=== PATIENT | male | born 1950 | race Caucasian/White ===

== ENCOUNTER 2020-05-27 10:46 | Emergency (ER) | payer MEDICARE, BC ==
[2020-05-27] MEDS ORDERED: Sodium Chloride 0.9% 10 ML Syringe FLUSH PRN (11:44)
[2020-05-27] MEDS ORDERED: Ibuprofen 400 MG Tab PO ONE (12:07)
[2020-05-27] MEDS ORDERED: Lisinopril 10 MG Tab PO ONE (12:07)
[2020-05-27] MEDS ORDERED: Metoprolol Succinate 50 MG Tab.ER PO ONE (12:08)
[2020-05-27] MEDS ORDERED: Aspirin 325 MG Tab.EC PO ONE (12:08)
--- NOTE | 2020-05-27 12:14 | EDM.PDOC ---
ED HPI GENERAL MEDICAL PROBLEM - General Chief Complaint: Respiratory Problem Stated Complaint: COVID POSITIVE, WORSENING SYMPTOMS Time Seen by Provider: 05/27/20 11:55 Source of Information: Reports: Patient, Old Records History Limitations: Reports: No Limitations - History of Present Illness INITIAL COMMENTS - FREE TEXT/NARRATIVE: 70 yo male with Covid for the past approx a week presents with continued fevers and body aches. Has been drinking a lot of water, but thinks he's dehydrated. He was sent from the [facility] to infusion therapy yesterday for IV fluids. No diarrhea or vomiting. No SOB. Did take acetaminophen before coming to the ER. Skipped all his morning meds today so far except his metformin. Ate breakfast at 6 am, nothing since. Has not fallen, denies dizziness with standing. Lives with his . Onset: Gradual Onset Date: 05/19/20 Duration: Week(s): (1+), Getting Worse Location: Reports: Generalized Quality: Reports: Ache Severity: Moderate Improves with: Reports: Medication Worsens with: Reports: Other (lack of medication) Context: Reports: Other (See HPI) Associated Symptoms: Reports: Cough (rare), Fever/Chills, Malaise. Denies: Nausea/Vomiting, Rash, Seizure, Shortness of Breath, Syncope Treatments INVOICE CLASSIFICATION CLERK: Reports: Acetaminophen - Related Data Allergies Allergy/AdvReac Type Severity Reaction Status Date / Time cephalexin Allergy Rash Verified 05/27/20 11:17 Sulfa (Sulfonamide Allergy Other Verified 05/27/20 11:17 Antibiotics) Home Meds: Home Meds Albuterol Sulfate [Proair Hfa] 1 - 2 puff IH Q4HR PRN 05/26/20 [History] Aspirin 325 mg PO DAILY 05/26/20 [History] Fenofibrate 160 mg PO DAILY 05/26/20 [History] Fish Oil/[place]-3 Fatty Acids [Fish Oil 1,000 MG] 1 each PO DAILY 05/26/20 [History] Fluticasone Propionate [Flovent HFA] 2 puff INH BID 05/26/20 [History] Loratadine [Claritin] 10 mg PO DAILY 05/26/20 [History] Metoprolol Succinate [Toprol Xl] 50 mg PO DAILY 05/26/20 [History] Nitroglycerin [Nitrostat] 0.4 mg SL ASDIRECTED 05/26/20 [History] Simvastatin [Zocor] 80 mg PO BEDTIME 05/26/20 [History] lisinopriL [Lisinopril] 10 mg PO DAILY 05/26/20 [History] metFORMIN [Glucophage] 500 mg PO BIDMEALS 05/26/20 [History] predniSONE [Prednisone] 20 mg PO DAILY 05/26/20 [History] Past Medical History Cardiovascular History: Reports: Angina, High Cholesterol, Hypertension, Stents Respiratory History: Reports: Sleep Apnea Other Respiratory History: uses cpap Musculoskeletal History: Reports: Fracture Endocrine/Metabolic History: Reports: Diabetes, Type II Social & Family History - Tobacco Use Tobacco Use Status *Q: Never Tobacco User - Recreational Drug Use Recreational Drug Use: No ED ROS GENERAL - Review of Systems Review Of Systems: See Below Constitutional: Reports: Fever, Malaise, Fatigue HEENT: Reports: No Symptoms Respiratory: Reports: Cough (mild). Denies: Shortness of Breath, Wheezing, Pleuritic Chest Pain, Sputum, Hemoptysis Cardiovascular: Reports: No Symptoms Endocrine: Reports: No Symptoms GI/Abdominal: Reports: No Symptoms : Reports: No Symptoms Musculoskeletal: Reports: Other (diffuse body aches) Skin: Reports: No Symptoms Neurological: Reports: No Symptoms ED EXAM, GENERAL - Physical Exam Exam: See Below Exam Limited By: No Limitations General Appearance: Alert, WD/WN, No Apparent Distress, Obese Eye Exam: Bilateral Eye: Normal Inspection Ears: Normal External Exam, Normal Canal, Hearing Grossly Normal Ear Exam: Bilateral Ear: Auricle Normal, Canal Normal Nose: Normal Inspection, No Blood Throat/Mouth: Normal Inspection, Normal Lips, Normal Oropharynx, Normal Voice, No Airway Compromise Head: Atraumatic, Normocephalic Neck: Normal Inspection Respiratory/Chest: No Respiratory Distress, Lungs Clear, Normal Breath Sounds, No Accessory Muscle Use Cardiovascular: Regular Rate, Rhythm, No Edema GI/Abdominal: Normal Bowel Sounds, Soft, Non-Tender, No Distention Back Exam: Normal Inspection. No: CVA Tenderness (R), CVA Tenderness (L) Extremities: Normal Inspection, Normal Range of Motion, Non-Tender, No Pedal Edema Neurological: Alert, Oriented, CN II-XII Intact, Normal Cognition, No Motor/Sensory Deficits Psychiatric: Normal Affect, Normal Mood Skin Exam: Warm, Dry, Intact, Normal Color, No Rash Course - Vital Signs Last Recorded V/S: Last Vital Signs Temp Pulse 79 05/27/20 13:31 Resp 18 05/27/20 11:21 BP 140/76 05/27/20 13:31 Pulse Ox 96 05/27/20 11:21 - Orders/Labs/Meds Orders: Active Orders 24 hr Category Date Time Status Sodium Chloride 0.9% [Saline Flush] Med 05/27/20 11:44 Active 10 ml FLUSH ASDIRECTED PRN Saline Lock Insert [OM.PC] Routine Oth 05/27/20 11:44 Ordered Medication Orders Sodium Chloride (Saline Flush) 10 ml FLUSH ASDIRECTED PRN PRN Reason: Keep Vein Open Labs: Laboratory Tests 05/27/20 05/27/20 05/27/20 Range/Units 11:57 12:05 13:32 WBC 7.0 (4.5-11.0) K/uL RBC 3.91 L (4.30-5.90) M/uL Hgb 12.8 (12.0-15.0) g/dL Hct 38.9 L (40.0-54.0) % MCV 100 H (80-98) fL MCH 33 H (27-31) pg MCHC 33 (32-36) % Plt Count 233 (150-400) K/uL Sodium 135 L (140-148) mmol/L Potassium 4.4 (3.6-5.2) mmol/L Chloride 102 (100-108) mmol/L Carbon Dioxide 21 (21-32) mmol/L Anion Gap 16.4 H (5.0-14.0) mmol/L BUN 20 H (7-18) mg/dL Creatinine 1.0 (0.8-1.3) mg/dL Est Cr Clr Drug Dosing 67.45 mL/min Estimated GFR (MDRD) > 60 (>60) Glucose 221 H (74-106) mg/dL Calcium 8.8 (8.5-10.1) mg/dL Urine Color Yellow (YELLOW) Urine Appearance Clear (CLEAR) Urine pH 5.5 (5.0-8.0) Ur Specific [place] >= 1.030 (1.008-1.030) Urine Protein 30 H (NEGATIVE) mg/dL Urine Glucose (UA) 500 H (NEGATIVE) mg/dL Urine Ketones Negative (NEGATIVE) mg/dL Urine Occult Blood Negative (NEGATIVE) Urine Nitrite Negative (NEGATIVE) Urine Bilirubin Negative (NEGATIVE) Urine Urobilinogen 0.2 (0.2-1.0) EU/dL Ur Leukocyte Esterase Negative (NEGATIVE) Urine RBC 0-5 (0-5) Urine WBC 0-5 (0-5) Ur Epithelial Cells Rare Amorphous Sediment Rare Urine Bacteria Rare Urine Mucus Rare Urine Other Meds: Medications Generic Name Dose Route Start Last Admin Trade Name Freq PRN Reason Stop Dose Admin Sodium Chloride 10 ml 05/27/20 11:44 Saline Flush FLUSH ASDIRECTED PRN Keep Vein Open Discontinued Medications Generic Name Dose Route Start Last Admin Trade Name Freq PRN Reason Stop Dose Admin Aspirin 325 mg 05/27/20 12:08 05/27/20 13:31 Ecotrin PO 05/27/20 12:09 325 mg ONETIME ONE Administration Ibuprofen 400 mg 05/27/20 12:07 05/27/20 13:31 Motrin PO 05/27/20 12:08 400 mg ONETIME ONE Administration Lisinopril 10 mg 05/27/20 12:07 05/27/20 13:31 Prinivil PO 05/27/20 12:08 10 mg ONETIME ONE Administration Metoprolol Succinate 50 mg 05/27/20 12:08 05/27/20 13:31 Toprol Xl PO 05/27/20 12:09 50 mg ONETIME ONE Administration - Re-Assessments/Exams Free Text/Narrative Re-Assessment/Exam: 05/27/20 14:01 Ate lunch here and had a glass of water. Departure - Departure Time of Disposition: 14:05 Disposition: Home, Self-Care 01 Condition: Fair Clinical Impression: COVID-19, Body aches - Discharge Information *PRESCRIPTION DRUG MONITORING PROGRAM REVIEWED*: No *COPY OF PRESCRIPTION DRUG MONITORING REPORT IN PATIENT JUAN: No Referrals: PCP,None [Primary Care Provider] - Forms: ED Department Discharge Additional Instructions: Add ibuprofen 400 mg every 6 hrs if needed for body aches, otherwise continue your current treatments/meds. Drink one or two of your no sugar sport drinks daily for the electrolytes, otherwise drink enough water so your urine is light yellow in color. Stay in touch with your provider on your condition. Return here or bad shortness of breath at rest. Sepsis Event Note (ED) - Evaluation Sepsis Screening Result: No Definite Risk - Focused Exam Vital Signs: Vital Signs Pulse Pulse Resp BP BP Pulse Ox 05/27/20 13:31 79 140/76 05/27/20 11:21 80 18 140/76 96 - My Orders Last 24 Hours: My Active Orders 05/27/20 11:44 Sodium Chloride 0.9% [Saline Flush] 10 ml FLUSH ASDIRECTED PRN Saline Lock Insert [OM.PC] Routine - Assessment/Plan Last 24 Hours: My Active Orders 05/27/20 11:44 Sodium Chloride 0.9% [Saline Flush] 10 ml FLUSH ASDIRECTED PRN Saline Lock Insert [OM.PC] Routine
== END 2020-05-27 14:21 | disposition home or self-care (01) ==
LOC: JP.ED 10:46
DX: U07.1 COVID-19 (principal); E78.00 Pure hypercholesterolemia, unspecified; I10 Essential (primary) hypertension; E11.9 Type 2 diabetes mellitus without complications; Z79.84 Long term (current) use of oral hypoglycemic drugs; Z88.1 Allergy status to other antibiotic agents; Z88.2 Allergy status to sulfonamides; Z79.82 Long term (current) use of aspirin; Z79.899 Other long term (current) drug therapy
CPT/HCPCS: 36415; 80048; 81001; 85027; 99283; A9270-GY

== ENCOUNTER 2021-03-01 20:30 | Observation (INO) | payer MEDICARE, BC ==
--- NOTE | 2021-03-01 21:46 | CRLCT ---
For Patients: As a result of the Century Cures Act, medical imaging exams and procedure reports are released immediately into your electronic medical record. You may view this report before your referring provider. If you have questions, please contact your health care provider. INDICATION: near syncope CT HEAD WITHOUT CONTRAST TECHNIQUE: Multiple axial CT images were performed through the head without intravenous contrast administration. COMPARISON: No previous studies are currently available for comparison. FINDINGS: No acute intracranial hemorrhage is identified. No extra-axial collections are evident and there is no mass effect or midline shift. There is mild diffuse age-related brain atrophy. Ventricular size and configuration are within normal limits for the patient`s age. Sethi-white differentiation is within normal limits. There is very mild patchy hypodensity in the periventricular white matter, a nonspecific finding which most likely reflects chronic small vessel ischemic change. Mild intracranial atherosclerotic vascular calcifications are noted. Osseous structures are within normal limits and no fractures are seen. Included portions of the paranasal sinuses and mastoid air cells are normally aerated. IMPRESSION: 1. No acute intracranial abnormality identified. 2. Mild age-related brain atrophy, white matter hypodensity consistent with chronic small vessel ischemic change, and intracranial atherosclerotic vascular calcifications. SARAH HAMM MD [facility] Please note that all CT scans at this facility use dose modulation, iterative reconstruction, and/or weight-based dosing when appropriate to reduce radiation dose to as low as reasonably achievable. Dictated by: Vitaliy Hamm MD @ 03/01/2021 21:45:08 (Electronically Signed)
--- NOTE | 2021-03-01 22:42 | EDM.PDOC ---
ED HPI GENERAL MEDICAL PROBLEM - General Chief Complaint: Cardiovascular Problem Stated Complaint: DIZZY AND LIGHTHEADED Time Seen by Provider: 03/01/21 22:32 Source of Information: Reports: Patient History Limitations: Reports: No Limitations - History of Present Illness INITIAL COMMENTS - FREE TEXT/NARRATIVE: pt arrivd after having multiple episodes of of near syncope. He had several of these while he was sitting in his recliner this am. He was seen at urgent care and heis [place] was decreased. he went home and this pm he had 7 or 8 episodes. Onset: Today Duration: Hour(s): Location: Reports: Head, Chest, Generalized Associated Symptoms: Reports: Syncope, Weakness - Related Data Allergies Allergy/AdvReac Type Severity Reaction Status Date / Time cephalexin Allergy Rash Verified 03/01/21 20:44 Sulfa (Sulfonamide Allergy Other Verified 03/01/21 20:44 Antibiotics) Home Meds: Home Meds Albuterol Sulfate [Proair Hfa] 1 - 2 puff IH Q4HR PRN 05/26/20 [History] Aspirin 325 mg PO DAILY 05/26/20 [History] Fenofibrate 160 mg PO DAILY 05/26/20 [History] Fish Oil/[place]-3 Fatty Acids [Fish Oil 1,000 MG] 1 each PO DAILY 05/26/20 [History] Loratadine [Claritin] 10 mg PO DAILY 05/26/20 [History] Metoprolol Succinate [Toprol Xl] 50 mg PO DAILY 05/26/20 [History] Nitroglycerin [Nitrostat] 0.4 mg SL ASDIRECTED 05/26/20 [History] Simvastatin [Zocor] 80 mg PO BEDTIME 05/26/20 [History] lisinopriL [Lisinopril] 10 mg PO DAILY 05/26/20 [History] metFORMIN [Glucophage] 500 mg PO BIDMEALS 05/26/20 [History] predniSONE [Prednisone] 5 mg PO DAILY 05/26/20 [History] Past Medical History Cardiovascular History: Reports: Angina, High Cholesterol, Hypertension, Stents Respiratory History: Reports: Sleep Apnea Other Respiratory History: uses cpap Musculoskeletal History: Reports: Fracture Endocrine/Metabolic History: Reports: Diabetes, Type II - Infectious Disease History Infectious Disease History: Reports: Measles, Novel Coronavirus - Past Surgical History Cardiovascular Surgical History: Reports: Coronary Artery Stent Social & Family History - Tobacco Use Tobacco Use Status *Q: Never Tobacco User - Caffeine Use Caffeine Use: Reports: Coffee, Soda - Recreational Drug Use Recreational Drug Use: No ED ROS GENERAL - Review of Systems Review Of Systems: See Below Constitutional: Reports: No Symptoms HEENT: Reports: No Symptoms Respiratory: Reports: No Symptoms Cardiovascular: Reports: Lightheadedness, Other (pt has had multiple episodes where he felt like he was going to pass out. ) Endocrine: Reports: No Symptoms GI/Abdominal: Reports: No Symptoms : Reports: No Symptoms Musculoskeletal: Reports: No Symptoms Skin: Reports: No Symptoms Neurological: Reports: Syncope Psychiatric: Reports: Anxiety ED EXAM, GENERAL - Physical Exam Exam: See Below Free Text/Narrative:: pt woke up this am and he had a number of episodes where he felt like he was going to pass out. He was seen at urgent care and he had his metoprol decreased his pulse was down in the 40s. He was good all afternoon and then this pm he hjad 8 or 9 episodes where he had the same sensation. They have a oximeter at home and his o2 sats were good but he was as low as 30 with the heart rate and he appeared to be having pauses and it was at that imani that he felt like he was going to pass out. Exam Limited By: No Limitations General Appearance: Alert, No Apparent Distress Ears: Normal TMs Nose: Normal Inspection Throat/Mouth: Normal Inspection Head: Atraumatic Respiratory/Chest: No Respiratory Distress Cardiovascular: Regular Rate, Rhythm, Bradycardia GI/Abdominal: Soft, Non-Tender (Male) Exam: Deferred Rectal (Males) Exam: Deferred Back Exam: Normal Inspection Extremities: Normal Inspection Neurological: Alert, Oriented, Normal Cognition Psychiatric: Anxious #1 Interpretation Rhythm: NSR QRS: RBBB (Pt is bradicardic and has a rt bundle. His rate is 52 at this time. No acute changes.) Course - Vital Signs Last Recorded V/S: Last Vital Signs Temp 35.6 C L 03/01/21 23:24 Pulse 49 L 03/01/21 23:24 Resp 18 03/01/21 23:24 BP 198/75 H 03/01/21 23:24 Pulse Ox 98 03/01/21 23:24 - Orders/Labs/Meds Orders: Active Orders 24 hr Category Date Time Status EKG 12 Lead [EK] Routine Ther 03/01/21 20:57 Ordered Labs: Laboratory Tests 03/01/21 03/01/21 03/01/21 Range/Units 21:11 21:11 21:11 WBC 9.6 (4.5-11.0) K/uL RBC 3.88 L (4.30-5.90) M/uL Hgb 12.9 (12.0-15.0) g/dL Hct 39.0 L (40.0-54.0) % MCV 101 H (80-98) fL MCH 33 H (27-31) pg MCHC 33 (32-36) % Plt Count 185 (150-400) K/uL Neut % (Auto) 60.2 (36-66) % Lymph % (Auto) 30.7 (24-44) % [place] % (Auto) 7.1 H (2-6) % Eos % (Auto) 1.8 L (2-4) % Baso % (Auto) 0.2 (0-1) % Sodium 140 (140-148) mmol/L Potassium 4.7 (3.6-5.2) mmol/L Chloride 105 (100-108) mmol/L Carbon Dioxide 24 (21-32) mmol/L Anion Gap 11.4 (5.0-14.0) mmol/L BUN 25 H (7-18) mg/dL Creatinine 1.2 (0.8-1.3) mg/dL Est Cr Clr Drug Dosing 56.21 mL/min Estimated GFR (MDRD) > 60 (>60) Glucose 157 H (74-106) mg/dL Calcium 8.7 (8.5-10.1) mg/dL Total Bilirubin 0.5 (0.2-1.0) mg/dL AST 27 (15-37) U/L ALT 53 (12-78) U/L Alkaline Phosphatase 33 L (46-116) U/L Troponin I < 0.017 (0.000-0.056) ng/mL Total Protein 6.3 L (6.4-8.2) g/dL Albumin 3.2 L (3.4-5.0) g/dL Globulin 3.1 (2.3-3.5) g/dL Albumin/Globulin Ratio 1.0 L (1.2-2.2) - Re-Assessments/Exams Free Text/Narrative Re-Assessment/Exam: 03/01/21 22:47 pt had a cat scn of the head which was neg. He had a ekg which showed a bradicardia, his trop was neg. His electrolytes were good. Departure - Departure Time of Disposition: 23:30 Disposition: Admitted As Inpatient 67 Condition: Fair Clinical Impression: Arrhythmia, Syncope Sepsis Event Note (ED) - Evaluation Sepsis Screening Result: No Definite Risk - Focused Exam Vital Signs: Vital Signs Temp Pulse Resp BP Pulse Ox 03/01/21 22:25 49 L 21 H 155/76 H 94 L 03/01/21 21:55 50 L 23 H 150/71 H 94 L 03/01/21 21:25 56 L 23 H 153/76 H 94 L 03/01/21 20:45 36.4 C 55 L 26 H 166/63 H 96 - My Orders Last 24 Hours: My Active Orders 03/01/21 20:57 EKG 12 Lead [EK] Routine - Assessment/Plan Last 24 Hours: My Active Orders 03/01/21 20:57 EKG 12 Lead [EK] Routine
[2021-03-02] MEDS ORDERED: Acetaminophen 325 MG Tab PO PRN (00:32)
[2021-03-02] MEDS ORDERED: Nitroglycerin 0.4 MG Tab.SL SL SCH (00:45)
[2021-03-02] MEDS: METFORMIN 500 MG PO SCH ×2 (09:00→17:58)
[2021-03-02] MEDS: Loratadine 10 MG Tab PO SCH (10:58)
[2021-03-02] MEDS: Aspirin 325 MG Tab.EC PO SCH (10:58)
[2021-03-02] MEDS: PREDNISONE 5 MG PO SCH (10:58)
[2021-03-02] MEDS: Lisinopril 10 MG Tab (PTOM) PO SCH (10:59)
--- NOTE | 2021-03-02 17:37 | PCM.PN ---
- General Info Date of Service: 03/02/21 Subjective Update: Mr. Barajas is a 70-year-old gentleman who was admitted through the emergency department for further evaluation and management of episodes of near syncope. Over the past few weeks has noted intermittent episodes of lightheadedness. On the day prior to admission while sitting in a chair in the morning experienced several episodes of near syncope. He was seen and evaluated in the walk-in clinic. Noted to have heart rates in the 40s and his dose of metoprolol was cut in half. He returned home, but in the early evening experienced recurrent episodes of near syncope. He did monitor his heart rate and noted rates in the 40s and described probable episodes of pauses. He came into the emergency department and has been admitted for further evaluation and management. He has a known history of coronary artery disease and is status post angioplasty with stent placement approximately 12 years ago. It was it at that time that he was started on the metoprolol and has tolerated the drug well for the past several years until recently. Functional Status: Reports: Tolerating Diet, Urinating - Review of Systems General: Reports: Weakness, Fatigue. Denies: Fever, Chills Pulmonary: Reports: No Symptoms Cardiovascular: Reports: Lightheadedness. Denies: Chest Pain, Palpitations, Dyspnea on Exertion, Orthopnea, PND, Edema Gastrointestinal: Reports: No Symptoms Genitourinary: Reports: No Symptoms - Patient Data Vitals - Most Recent: Last Vital Signs Temp 97.2 F 03/02/21 15:14 Pulse 59 L 03/02/21 15:14 Resp 16 03/02/21 15:14 BP 138/62 03/02/21 15:14 Pulse Ox 97 03/02/21 15:14 Weight - Most Recent: 215 lb 2.738 oz I&O - Last 24 Hours: Intake & Output 03/02/21 03/02/21 03/02/21 06:59 14:59 22:59 Intake Total 600 1500 Output Total 900 Balance -[phone] Lab Results Last 24 Hours: Laboratory Results - last 24 hr 03/01/21 03/01/21 03/01/21 Range/Units 21:11 21:11 21:11 WBC 9.6 (4.5-11.0) K/uL RBC 3.88 L (4.30-5.90) M/uL Hgb 12.9 (12.0-15.0) g/dL Hct 39.0 L (40.0-54.0) % MCV 101 H (80-98) fL MCH 33 H (27-31) pg MCHC 33 (32-36) % Plt Count 185 (150-400) K/uL Neut % (Auto) 60.2 (36-66) % Lymph % (Auto) 30.7 (24-44) % [place] % (Auto) 7.1 H (2-6) % Eos % (Auto) 1.8 L (2-4) % Baso % (Auto) 0.2 (0-1) % Sodium 140 (140-148) mmol/L Potassium 4.7 (3.6-5.2) mmol/L Chloride 105 (100-108) mmol/L Carbon Dioxide 24 (21-32) mmol/L Anion Gap 11.4 (5.0-14.0) mmol/L BUN 25 H (7-18) mg/dL Creatinine 1.2 (0.8-1.3) mg/dL Est Cr Clr Drug Dosing 56.21 mL/min Estimated GFR (MDRD) > 60 (>60) Glucose 157 H (74-106) mg/dL POC Glucose (74-106) mg/dL Calcium 8.7 (8.5-10.1) mg/dL Total Bilirubin 0.5 (0.2-1.0) mg/dL AST 27 (15-37) U/L ALT 53 (12-78) U/L Alkaline Phosphatase 33 L (46-116) U/L Troponin I < 0.017 (0.000-0.056) ng/mL Total Protein 6.3 L (6.4-8.2) g/dL Albumin 3.2 L (3.4-5.0) g/dL Globulin 3.1 (2.3-3.5) g/dL Albumin/Globulin Ratio 1.0 L (1.2-2.2) 03/02/21 03/02/21 Range/Units 04:20 16:51 WBC (4.5-11.0) K/uL RBC (4.30-5.90) M/uL Hgb (12.0-15.0) g/dL Hct (40.0-54.0) % MCV (80-98) fL MCH (27-31) pg MCHC (32-36) % Plt Count (150-400) K/uL Neut % (Auto) (36-66) % Lymph % (Auto) (24-44) % [place] % (Auto) (2-6) % Eos % (Auto) (2-4) % Baso % (Auto) (0-1) % Sodium (140-148) mmol/L Potassium (3.6-5.2) mmol/L Chloride (100-108) mmol/L Carbon Dioxide (21-32) mmol/L Anion Gap (5.0-14.0) mmol/L BUN (7-18) mg/dL Creatinine (0.8-1.3) mg/dL Est Cr Clr Drug Dosing mL/min Estimated GFR (MDRD) (>60) Glucose (74-106) mg/dL POC Glucose 176 H (74-106) mg/dL Calcium (8.5-10.1) mg/dL Total Bilirubin (0.2-1.0) mg/dL AST (15-37) U/L ALT (12-78) U/L Alkaline Phosphatase (46-116) U/L Troponin I < 0.017 (0.000-0.056) ng/mL Total Protein (6.4-8.2) g/dL Albumin (3.4-5.0) g/dL Globulin (2.3-3.5) g/dL Albumin/Globulin Ratio (1.2-2.2) Med Orders - Current: Current Medications Acetaminophen (Acetaminophen 325 Mg Tab) 650 mg PO Q4H PRN PRN Reason: Pain Aspirin (Aspirin 325 Mg Tab.Ec) 325 mg PO DAILY [facility] Last Admin: 03/02/21 10:58 Dose: 325 mg Documented by: Lisinopril (Lisinopril 10 Mg Tab (Ptom)) 10 mg PO DAILY [facility] Last Admin: 03/02/21 10:59 Dose: 10 mg Documented by: Loratadine (Loratadine 10 Mg Tab) 10 mg PO DAILY [facility] Last Admin: 03/02/21 10:58 Dose: Not Given Documented by: Metformin HCl (Metformin 500 Mg Tab (Ptom)) 500 mg PO BIDMEALS [facility] Last Admin: 03/02/21 09:00 Dose: 500 mg Documented by: Nitroglycerin (Nitroglycerin 0.4 Mg Tab.Sl) 0.4 mg SL ASDIRECTED [facility] Simvastatin 80mg Tab ((Ptom)) 1 each PO BEDTIME [facility] Prednisone (Prednisone 5 Mg Tab (Ptom)) 5 mg PO DAILY [facility] Last Admin: 03/02/21 10:58 Dose: 5 mg Documented by: - Exam General: Alert, Oriented, Cooperative, Mild Distress Lungs: Clear to Auscultation, Normal Respiratory Effort Cardiovascular: Regular Rhythm, No Murmurs, Bradycardia GI/Abdominal Exam: Soft, Non-Tender, No Organomegaly, No Distention Extremities: Non-Tender, No Pedal Edema - Patient Data Lab Results Last 24 hrs: Laboratory Results - last 24 hr 03/01/21 03/01/21 03/01/21 Range/Units 21:11 21:11 21:11 WBC 9.6 (4.5-11.0) K/uL RBC 3.88 L (4.30-5.90) M/uL Hgb 12.9 (12.0-15.0) g/dL Hct 39.0 L (40.0-54.0) % MCV 101 H (80-98) fL MCH 33 H (27-31) pg MCHC 33 (32-36) % Plt Count 185 (150-400) K/uL Neut % (Auto) 60.2 (36-66) % Lymph % (Auto) 30.7 (24-44) % [place] % (Auto) 7.1 H (2-6) % Eos % (Auto) 1.8 L (2-4) % Baso % (Auto) 0.2 (0-1) % Sodium 140 (140-148) mmol/L Potassium 4.7 (3.6-5.2) mmol/L Chloride 105 (100-108) mmol/L Carbon Dioxide 24 (21-32) mmol/L Anion Gap 11.4 (5.0-14.0) mmol/L BUN 25 H (7-18) mg/dL Creatinine 1.2 (0.8-1.3) mg/dL Est Cr Clr Drug Dosing 56.21 mL/min Estimated GFR (MDRD) > 60 (>60) Glucose 157 H (74-106) mg/dL POC Glucose (74-106) mg/dL Calcium 8.7 (8.5-10.1) mg/dL Total Bilirubin 0.5 (0.2-1.0) mg/dL AST 27 (15-37) U/L ALT 53 (12-78) U/L Alkaline Phosphatase 33 L (46-116) U/L Troponin I < 0.017 (0.000-0.056) ng/mL Total Protein 6.3 L (6.4-8.2) g/dL Albumin 3.2 L (3.4-5.0) g/dL Globulin 3.1 (2.3-3.5) g/dL Albumin/Globulin Ratio 1.0 L (1.2-2.2) 03/02/21 03/02/21 Range/Units 04:20 16:51 WBC (4.5-11.0) K/uL RBC (4.30-5.90) M/uL Hgb (12.0-15.0) g/dL Hct (40.0-54.0) % MCV (80-98) fL MCH (27-31) pg MCHC (32-36) % Plt Count (150-400) K/uL Neut % (Auto) (36-66) % Lymph % (Auto) (24-44) % [place] % (Auto) (2-6) % Eos % (Auto) (2-4) % Baso % (Auto) (0-1) % Sodium (140-148) mmol/L Potassium (3.6-5.2) mmol/L Chloride (100-108) mmol/L Carbon Dioxide (21-32) mmol/L Anion Gap (5.0-14.0) mmol/L BUN (7-18) mg/dL Creatinine (0.8-1.3) mg/dL Est Cr Clr Drug Dosing mL/min Estimated GFR (MDRD) (>60) Glucose (74-106) mg/dL POC Glucose 176 H (74-106) mg/dL Calcium (8.5-10.1) mg/dL Total Bilirubin (0.2-1.0) mg/dL AST (15-37) U/L ALT (12-78) U/L Alkaline Phosphatase (46-116) U/L Troponin I < 0.017 (0.000-0.056) ng/mL Total Protein (6.4-8.2) g/dL Albumin (3.4-5.0) g/dL Globulin (2.3-3.5) g/dL Albumin/Globulin Ratio (1.2-2.2) Result Diagrams: 03/01/21 21:11 03/01/21 21:11 Sepsis Event Note - Evaluation Sepsis Screening Result: No Definite Risk - Focused Exam Vital Signs: Vital Signs Temp Pulse Resp BP BP Pulse Ox 03/02/21 15:14 97.2 F 59 L 16 138/62 97 03/02/21 11:00 96.3 F L 51 L 16 150/70 H 99 03/02/21 10:59 161/74 H 03/02/21 07:52 49 L 161/74 H 03/02/21 07:30 96.3 F L 48 L 16 179/76 H 99 - Problem List Review Problem List Initiated/Reviewed/Updated: Yes - My Orders Last 24 Hours: My Active Orders 03/03/21 08:00 GLUCOSE POC LAB TO COLLECT JPM [POC] BIDAC 03/03/21 17:00 GLUCOSE POC LAB TO COLLECT JPM [POC] BIDAC 03/04/21 08:00 GLUCOSE POC LAB TO COLLECT JPM [POC] BIDAC - Plan Plan:: ASSESSMENT AND PLAN NEAR SYNCOPE-likely secondary to bradycardia and possible pauses. He has been noted to have bradycardia thus far during admission but no obvious pauses on telemetry. Likely secondary to current therapy with metoprolol as well as some underlying conduction disease. -Telemetry monitoring -Orthostatic vital signs -Hold metoprolol XL TYPE 2 DIABETES MELLITUS -Continue Metformin -Twice daily glucometers CORONARY ARTERY DISEASE-currently asymptomatic -Continue outpatient medications except metoprolol MAINTENANCE ISSUES -DVT prophylaxis; Lovenox 40 mg subcu daily -GI prophylaxis; not indicated -Dickens catheter; not indicated -Nutrition; regular diet -Nicotine dependence; not required CODE STATUS-FULL CODE ADMISSION STATUS-patient will be admitted to inpatient status, expect at least a 2 night hospital stay for evaluation and management of problems as outlined above. At the time of this admission I do not reasonably expected evaluation and management of this problem will require more than a 96 hour hospital stay. DISPOSITION-anticipate discharge to home after the hospital stay. PRIMARY CARE PROVIDER-Dr. Kramer
[2021-03-02] MEDS ORDERED: Enoxaparin 40 MG/0.4 ML Syringe SUBCUT SCH (21:00)
[2021-03-02] MEDS ORDERED: SIMVASTATIN 80 MG PO SCH (21:00)
[2021-03-02] MEDS ORDERED: atorvaSTATin 20 MG Tab PO SCH (21:00)
[2021-03-03] MEDS: METFORMIN 500 MG PO SCH (07:03)
[2021-03-03] MEDS: Loratadine 10 MG Tab PO SCH (08:36)
[2021-03-03] MEDS: Aspirin 325 MG Tab.EC PO SCH (08:37)
[2021-03-03] MEDS: PREDNISONE 5 MG PO SCH (08:37)
[2021-03-03] MEDS: Lisinopril 10 MG Tab (PTOM) PO SCH (08:38)
--- NOTE | 2021-03-04 01:34 | PN ---
DATE OF SERVICE: 03/02/2021 SUBJECTIVE: A -[id number]-tau male with a history of type 2 diabetes, hypertension, and coronary artery disease with remote history of cardiac stenting in 2008, was admitted yesterday evening with recurring episodes of near-syncope and bradycardia with rates dropping into the 30s by home oximetry monitoring. Through the nighttime, he has rested comfortably. Denies chest pain, palpitations, syncope, dizziness, or unusual shortness of breath. Has been up to void. Offers no new complaints. OBJECTIVE: VITAL SIGNS: Pulse rates have been recorded as low as 36, now at 52 beats per minute. Respiratory rate 16, O2 sats 98%, blood pressure 140/57. NECK: Brisk bradycardic carotid pulses. No stridor, nuchal rigidity, or JVD. LUNGS: Clear and non-tachypneic. HEART: Regular in rhythm. Bradycardic. No murmurs or gallops noted. ABDOMEN: Benign, nontender, and nondistended. EXTREMITIES: Warm and pink. Good turgor. Non-diaphoretic. Followup troponin remains within normal range at less than 0.017. IMPRESSION AND PLAN: 1. Near-syncope with bradycardia noted prior to and following hospital admission. May be secondary to beta-jomar therapy in place for reasons of underlying coronary artery disease. Last dose of metoprolol was self-administered at approximately 1300 yesterday. We will continue to monitor with rate-controlling agents on hold, allow activity on the unit with standby assistance and ongoing telemetry monitoring. If heart rate stabilizes and the patient has no further near-syncopal episodes, we will discharge to home off his beta jomar therapy. However, if persistent pronounced bradycardia is recognized, may need to consider consultation for pacemaker placement. 2. Type 2 diabetes, maintained on metformin therapy with b.i.d. Accu-Cheks anticipated. 3. Hypertension and hyperlipidemia. Continue with pharmacologic therapies without change. Erick Kramer MD /[id number]
--- NOTE | 2021-03-04 01:34 | HP ---
IDENTIFYING DATA: Jason Barajas is a 70-year-old male from [place], [place]. CHIEF COMPLAINT: Near syncope. HISTORY OF PRESENT ILLNESS: Adult male has a known history of hypertension, hyperlipidemia, type 2 diabetes with oral medical therapies, and coronary artery disease with previous cardiac catheterization and coronary artery stenting. He reports an approximate 24-hour history of recurrent bradycardia and sensation of near syncope. He had woken this morning feeling well after a light breakfast including 1 to 2 cups of coffee. He was sitting in his recliner and had repeated episodes of dizziness, lightheadedness, and a feeling of pending faint. He had no visual disturbance, nausea, emesis, diaphoresis, shortness of breath, or chest pain. Episodes were brief of less than 1 minute though repetitive in nature. He and his then decided to seek evaluation, and he was seen in the walk-in clinic earlier today. Labs including CBC, general chemistries, TSH, and magnesium level were obtained and no source of his near syncopal episodes was identified. He was found to have evidence of a right bundle-branch block with sinus bradycardia on 12-lead EKG. He was instructed to reduce his metoprolol dose and seek followup in the clinic in the near future. He returned home and felt well through the afternoon hours as he engaged in light outdoor activity. However, this evening with sedentary activity, he again had recurring episodes of near syncope and sense of near faint. He return to the emergency room for evaluation, and reports that with home oximetry checks he was found to have episodes of bradycardia with rates falling into the 30s associated with his near syncopal episodes. He has had no other abnormal findings in the emergency room and is admitted for ongoing monitoring. PAST MEDICAL HISTORY: Previous surgeries include colonoscopy, EGD for abdominal pain, and coronary angioplasty with stents in 2008. Chronic health problems include; obstructive sleep apnea with occasional use of CPAP, type 2 diabetes managed with metformin therapies, hypertension, and hyperlipidemia. He has not had angina-like episodes in the recent past. ALLERGIES: REPORTED TO CEPHALEXIN AND SULFA. CURRENT MEDICATIONS: Albuterol metered-dose inhaler two puffs q.4 hours p.r.n. wheeze. Aspirin 325 mg daily. Fenofibrate 160 mg daily. [place]-3 fatty fish oil capsules 1000 mg daily. Loratadine 10 mg daily. Metoprolol succinate previous dose of 50 mg daily with dose decreased to 25 mg daily at noontime dosing. Nitroglycerin 0.4 mg sublingually p.r.n. anginal pain, none recently used. Simvastatin 80 mg at bedtime. Lisinopril 10 mg daily. Metformin 500 mg b.i.d. 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 HABITS: No tobacco use. Caffeine intake averages three to four cups of coffee every morning. Alcohol use estimated at six drinks weekly. IMMUNIZATIONS: Does receive annual influenza vaccine. Pneumococcal vaccine status is current and up to date. Has received COVID vaccine series without adverse reaction. He did have active COVID disease in the fall. 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 He engages in limited professional work and daily light to moderate activities at home. He is . Performs ADLs independently. He has had no previous loss of consciousness. FAMILY HISTORY: Denies a familial history of recent acute respiratory infection, COVID disease, or obstructive pulmonary disease. Family history is positive for diabetes and ischemic heart disease. REVIEW OF SYSTEMS: NEUROLOGIC: No history of stroke, seizures, focal weakness, or significant hearing loss. He does wear corrective lenses. CARDIAC: As above. No history of congestive heart failure or rheumatic fever. RESPIRATORY: History of idiopathic hypereosinophilic syndrome with occasional wheeze, maintained on chronic suppressive steroids with use of prednisone at 5 mg daily. Rare use of albuterol metered-dose inhaler. No recent acute respiratory symptoms. GASTROINTESTINAL: No dyspepsia, nausea, emesis, hepatitis, or gallbladder disease. Bowel movements are regular. GENITOURINARY: Voiding with good regularity. Rises once nightly to void. MUSCULOSKELETAL: No current arthralgias reported. PHYSICAL EXAMINATION: GENERAL: Appearance is that of an adult male, now resting comfortably in bed. VITAL SIGNS: On admission, temperature 35.6 degrees centigrade, pulse 49 and regular, respiratory rate 18, blood pressure 198/75 on presentation, and O2 saturations 98% on room air. HEENT: Hearing is intact. Pupils are reactive to light. Sclerae are anicteric. Extraocular eye movements are symmetrical. No nasal congestion, facial asymmetries, or slurred speech. Oral mucosa is moist. NECK: Brisk carotid pulses. Mildly bradycardic. No murmurs or gallops. No bruits or JVD is noted. No thyromegaly. LUNGS: Symmetrical, clear, resonant, and non-tachypneic. HEART: Irregular. Bradycardic. No murmurs or gallops are heard. A 12-lead EKG reveals right bundle-branch block with sinus bradycardia. ABDOMEN: Obese, soft, nontender, and nondistended. No organomegaly. Active sounds. Good femoral pulses. No abdominal bruits. No CVA pain. EXTREMITIES: Warm, pink, and dry. Non diaphoretic. No cyanosis. No pitting edema. Good arterial pulses at the radial and posterior tibial regions. LABORATORY DATA: Labs on admission; WBC 9.6, hemoglobin 12.9, and platelet count 185,000. Sodium 140, potassium 4.7, creatinine 1.2 with GFR of greater than 60, glucose in a nonfasting state 157, calcium 8.7, alkaline phosphatase 33, and AST 27. Troponin less than 0.017. CT of the head obtained in the emergency room showed no acute changes. IMPRESSIONS: 1. Recurrent near syncopal episodes with bradycardia noted by home monitoring and 12-lead electrocardiogram. 2. History of coronary artery disease, status post coronary artery stenting in 2008. 3. Type 2 diabetes with metformin therapies. 4. Hypertension. 5. Hyperlipidemia. 6. History of idiopathic hypereosinophilic syndrome, on chronic antihistamine and steroid suppressive therapies. PLAN: With the patient's recurring transient episodes, he is admitted to telemetry for ongoing monitoring. We will hold beta jomar therapy at the current time and allow ambulation with standby assistance. Full code status is enacted. Provide consistent carb. Diabetic diet with glucose monitoring. If no concerning changes are evident during hospital stay, may require discharge to home with Holter monitor. However, if bradycardia is evident after beta-jomar therapies are held, may potentially require consultation for a possible pacemaker placement. Erick Kramer MD /[id number]
--- NOTE | 2021-03-07 08:49 | PCM.DCSUM1 ---
Discharge Summary - Hospital Course Free Text/Narrative:: Hannah is a 70-year-old white male with past medical history significant for hyperlipidemia, hypertension, and atherosclerosis with prior stenting who presented with bradycardia. He states that he has been having episodes of lightheadedness and dizziness and when he has these episodes his has been checking his heart rate with a pulse oximeter. During the episodes his heart rate was between the 30s and 40s. He had seen his primary care for this and they halved the dose of his Metformin. When he came in he was having heart rates in the 30s and 40s. He was taken off metoprolol. At 36 hours after being off metoprolol his heart rate was in the 50s to 60s and he was feeling better not having any episodes. He was advised to come back to the emergency department if he had another episode. He was also advised to follow-up with his primary care physician and his cook's assistant regarding the possible need for a pacemaker in the future. Diagnosis: Stroke: No Modified Suzy Scale: No Signif.Disability Despite Sympt.Able to Carry Out Usual Act./Duties Modified [place] Scale Score: 1 - Discharge Data Discharge Date: 03/03/21 Discharge Disposition: Home, Self-Care 01 Condition: Stable - Referral to Home Health Date of Face to Face Encounter: 03/03/21 Primary Care Physician: PCP None - Discharge Diagnosis/Problem(s) (1) Bradycardia SNOMED Code(s): 31822197 ICD Code: R00.1 - BRADYCARDIA, UNSPECIFIED Status: Acute Problem Details: HR 50-60s (2) Pre-syncope SNOMED Code(s): 119823052 ICD Code: R55 - SYNCOPE AND COLLAPSE Status: Acute (3) Coronary atherosclerosis SNOMED Code(s): 782292174 ICD Code: I25.10 - ATHSCL HEART DISEASE OF [place] CORONARY ARTERY W/O ANG PCTRS Status: Chronic (4) Essential hypertension SNOMED Code(s): 96501435 ICD Code: I10 - ESSENTIAL (PRIMARY) HYPERTENSION Status: Chronic (5) Type 2 diabetes mellitus SNOMED Code(s): 02353843 ICD Code: E11.9 - TYPE 2 DIABETES MELLITUS WITHOUT COMPLICATIONS Status: Chronic - Patient Instructions Diet: Heart Healthy Diet - Discharge Plan Home Medications: Home Meds Albuterol Sulfate [Proair Hfa] 1 - 2 puff IH Q4HR PRN 05/26/20 [History] Aspirin 325 mg PO DAILY 05/26/20 [History] Fenofibrate 160 mg PO DAILY 05/26/20 [History] Fish Oil/[place]-3 Fatty Acids [Fish Oil 1,000 MG] 1 each PO DAILY 05/26/20 [History] Loratadine [Claritin] 10 mg PO DAILY 05/26/20 [History] Nitroglycerin [Nitrostat] 0.4 mg SL ASDIRECTED 05/26/20 [History] Simvastatin [Zocor] 80 mg PO BEDTIME 05/26/20 [History] lisinopriL [Lisinopril] 10 mg PO DAILY 05/26/20 [History] metFORMIN [Glucophage] 500 mg PO BIDMEALS 05/26/20 [History] predniSONE [Prednisone] 5 mg PO DAILY 05/26/20 [History] Oxygen Therapy Mode: Room Air Patient Handouts: Near-Syncope, [id number] Forms: ED Department Discharge Referrals: Donovan Kramer MD [Physician] - 03/04/21 11:40 am - Discharge Summary/Plan Comment DC Time >30 min.: No - General Info Date of Service: 03/03/21 Admission Dx/Problem (Free Text: Bradycardia, Presyncope Subjective Update: Mr. Barajas had no complaints on the day of discharge. He was no longer having any episodes. He was maintaining a heart rate in the 50s to 60s. Functional Status: Reports: Tolerating Diet, Ambulating. Denies: New Symptoms - Review of Systems General: Reports: No Symptoms HEENT: Reports: No Symptoms Pulmonary: Reports: No Symptoms Cardiovascular: Reports: No Symptoms Gastrointestinal: Reports: No Symptoms Genitourinary: Reports: No Symptoms Musculoskeletal: Reports: No Symptoms Skin: Reports: No Symptoms Neurological: Reports: No Symptoms Psychiatric: Reports: No Symptoms - Patient Data Vitals - Most Recent: Last Vital Signs Temp 97.8 F 03/03/21 11:18 Pulse 59 L 03/03/21 11:18 Resp 16 03/03/21 11:18 BP 161/78 H 03/03/21 11:18 Pulse Ox 98 03/03/21 11:18 Orthostatic Blood Pressure [ 153/98 Standing] Orthostatic Blood Pressure [ 150/71 Sitting] Orthostatic Blood Pressure [ 168/66 Supine] Weight - Most Recent: 215 lb 2.738 oz Med Orders - Current: Current Medications Discontinued Medications Acetaminophen (Acetaminophen 325 Mg Tab) 650 mg PO Q4H PRN PRN Reason: Pain Aspirin (Aspirin 325 Mg Tab.Ec) 325 mg PO DAILY [facility] Last Admin: 03/03/21 08:37 Dose: 325 mg Documented by: Enoxaparin Sodium (Enoxaparin 40 Mg/0.4 Ml Syringe) 40 mg SUBCUT BEDTIME [facility] Last Admin: 03/02/21 21:29 Dose: 40 mg Documented by: Lisinopril (Lisinopril 10 Mg Tab (Ptom)) 10 mg PO DAILY [facility] Last Admin: 03/03/21 08:38 Dose: 10 mg Documented by: Loratadine (Loratadine 10 Mg Tab) 10 mg PO DAILY [facility] Last Admin: 03/03/21 08:36 Dose: Not Given Documented by: Metformin HCl (Metformin 500 Mg Tab (Ptom)) 500 mg PO BIDMEALS [facility] Last Admin: 03/03/21 07:03 Dose: 500 mg Documented by: Nitroglycerin (Nitroglycerin 0.4 Mg Tab.Sl) 0.4 mg SL ASDIRECTED [facility] Simvastatin 80mg Tab ((Ptom)) 1 each PO BEDTIME [facility] Last Admin: 03/02/21 21:30 Dose: 1 each Documented by: Prednisone (Prednisone 5 Mg Tab (Ptom)) 5 mg PO DAILY [facility] Last Admin: 03/03/21 08:37 Dose: 5 mg Documented by: - Exam General: Reports: Alert, Oriented, Cooperative, No Acute Distress HEENT: Reports: Pupils Equal, EOMI, Mucous Membr. Moist/[place] Neck: Reports: Supple, Trachea Midline Lungs: Reports: Clear to Auscultation, Normal Respiratory Effort Cardiovascular: Reports: Regular Rhythm, Bradycardia GI/Abdominal Exam: Normal Bowel Sounds, Soft, Non-Tender, No Distention Extremities: Non-Tender, No Pedal Edema Skin: Reports: Warm, Dry, Intact Neurological: Reports: No New Focal Deficit Psy/Mental Status: Reports: Alert, Normal Affect, Normal Mood
--- NOTE | 2021-03-07 09:08 | PCM.DCSUM1 ---
Discharge Summary - Hospital Course Free Text/Narrative:: Hannah is a 70-year-old white male with past medical history significant for hyperlipidemia, hypertension, and atherosclerosis with prior stenting who presented with bradycardia. He states that he has been having episodes of lightheadedness and dizziness and when he has these episodes his has been checking his heart rate with a pulse oximeter. During the episodes his heart rate was between the 30s and 40s. He had seen his primary care for this and they halved the dose of his Metformin. When he came in he was having heart rates in the 30s and 40s. He was taken off metoprolol. At 36 hours after being off metoprolol his heart rate was in the 50s to 60s and he was feeling better not having any episodes. He was advised to come back to the emergency department if he had another episode. He was also advised to follow-up with his primary care physician and his satellite installer regarding the possible need for a pacemaker in the future. Diagnosis: Stroke: No Modified Suzy Scale: No Signif.Disability Despite Sympt.Able to Carry Out Usual Act./Duties Modified [place] Scale Score: 1 - Discharge Data Discharge Date: 03/03/21 Discharge Disposition: Home, Self-Care 01 Condition: Stable - Referral to Home Health Date of Face to Face Encounter: 03/03/21 Primary Care Physician: PCP None - Discharge Diagnosis/Problem(s) (1) Bradycardia SNOMED Code(s): 51084940 ICD Code: R00.1 - BRADYCARDIA, UNSPECIFIED Status: Acute Problem Details: HR 50-60s (2) Pre-syncope SNOMED Code(s): 509633269 ICD Code: R55 - SYNCOPE AND COLLAPSE Status: Acute (3) Coronary atherosclerosis SNOMED Code(s): 258395050 ICD Code: I25.10 - ATHSCL HEART DISEASE OF [place] CORONARY ARTERY W/O ANG PCTRS Status: Chronic (4) Essential hypertension SNOMED Code(s): 56584871 ICD Code: I10 - ESSENTIAL (PRIMARY) HYPERTENSION Status: Chronic (5) Type 2 diabetes mellitus SNOMED Code(s): 32292392 ICD Code: E11.9 - TYPE 2 DIABETES MELLITUS WITHOUT COMPLICATIONS Status: Chronic - Patient Instructions Diet: Heart Healthy Diet - Discharge Plan Home Medications: Home Meds Albuterol Sulfate [Proair Hfa] 1 - 2 puff IH Q4HR PRN 05/26/20 [History] Aspirin 325 mg PO DAILY 05/26/20 [History] Fenofibrate 160 mg PO DAILY 05/26/20 [History] Fish Oil/[place]-3 Fatty Acids [Fish Oil 1,000 MG] 1 each PO DAILY 05/26/20 [History] Loratadine [Claritin] 10 mg PO DAILY 05/26/20 [History] Nitroglycerin [Nitrostat] 0.4 mg SL ASDIRECTED 05/26/20 [History] Simvastatin [Zocor] 80 mg PO BEDTIME 05/26/20 [History] lisinopriL [Lisinopril] 10 mg PO DAILY 05/26/20 [History] metFORMIN [Glucophage] 500 mg PO BIDMEALS 05/26/20 [History] predniSONE [Prednisone] 5 mg PO DAILY 05/26/20 [History] Oxygen Therapy Mode: Room Air Patient Handouts: Near-Syncope, [id number] Forms: ED Department Discharge Referrals: Donovan Kramer MD [Physician] - 03/04/21 11:40 am - Discharge Summary/Plan Comment DC Time >30 min.: No Total # of Minutes for Discharge Time: 20 - General Info Date of Service: 03/03/21 Admission Dx/Problem (Free Text: Bradycardia, Presyncope Subjective Update: Heidi Horton was having no episodes on the day of discharge. He was maintaining a heart rate in the 50s to 60s. And he had no complaints. Functional Status: Reports: Tolerating Diet, Ambulating. Denies: New Symptoms - Review of Systems General: Reports: No Symptoms HEENT: Reports: No Symptoms Pulmonary: Reports: No Symptoms Cardiovascular: Reports: No Symptoms Gastrointestinal: Reports: No Symptoms Genitourinary: Reports: No Symptoms Musculoskeletal: Reports: No Symptoms Skin: Reports: No Symptoms Neurological: Reports: No Symptoms Psychiatric: Reports: No Symptoms - Patient Data Vitals - Most Recent: Last Vital Signs Temp 97.8 F 03/03/21 11:18 Pulse 59 L 03/03/21 11:18 Resp 16 03/03/21 11:18 BP 161/78 H 03/03/21 11:18 Pulse Ox 98 03/03/21 11:18 Orthostatic Blood Pressure [ 153/98 Standing] Orthostatic Blood Pressure [ 150/71 Sitting] Orthostatic Blood Pressure [ 168/66 Supine] Weight - Most Recent: 215 lb 2.738 oz Med Orders - Current: Current Medications Discontinued Medications Acetaminophen (Acetaminophen 325 Mg Tab) 650 mg PO Q4H PRN PRN Reason: Pain Aspirin (Aspirin 325 Mg Tab.Ec) 325 mg PO DAILY [facility] Last Admin: 03/03/21 08:37 Dose: 325 mg Documented by: Enoxaparin Sodium (Enoxaparin 40 Mg/0.4 Ml Syringe) 40 mg SUBCUT BEDTIME [facility] Last Admin: 03/02/21 21:29 Dose: 40 mg Documented by: Lisinopril (Lisinopril 10 Mg Tab (Ptom)) 10 mg PO DAILY [facility] Last Admin: 03/03/21 08:38 Dose: 10 mg Documented by: Loratadine (Loratadine 10 Mg Tab) 10 mg PO DAILY [facility] Last Admin: 03/03/21 08:36 Dose: Not Given Documented by: Metformin HCl (Metformin 500 Mg Tab (Ptom)) 500 mg PO BIDMEALS [facility] Last Admin: 03/03/21 07:03 Dose: 500 mg Documented by: Nitroglycerin (Nitroglycerin 0.4 Mg Tab.Sl) 0.4 mg SL ASDIRECTED [facility] Simvastatin 80mg Tab ((Ptom)) 1 each PO BEDTIME [facility] Last Admin: 03/02/21 21:30 Dose: 1 each Documented by: Prednisone (Prednisone 5 Mg Tab (Ptom)) 5 mg PO DAILY [facility] Last Admin: 03/03/21 08:37 Dose: 5 mg Documented by: - Exam General: Reports: Alert, Oriented, Cooperative, No Acute Distress HEENT: Reports: Pupils Equal, EOMI, Mucous Membr. Moist/[place] Neck: Reports: Supple, Trachea Midline Lungs: Reports: Clear to Auscultation, Normal Respiratory Effort Cardiovascular: Reports: Regular Rhythm, Bradycardia GI/Abdominal Exam: Normal Bowel Sounds, Soft, Non-Tender Extremities: Non-Tender, No Pedal Edema Skin: Reports: Warm, Dry, Intact Neurological: Reports: No New Focal Deficit Psy/Mental Status: Reports: Alert, Normal Affect, Normal Mood
== END 2021-03-03 16:00 | disposition home or self-care (01) ==
LOC: JP.ED 20:30 → JP.MS 22:55
PROVIDERS: ADMIT Family Medicine; ATTEND Family Medicine
DX: R00.1 Bradycardia, unspecified (principal); R42 Dizziness and giddiness; I25.10 Atherosclerotic heart disease of native coronary artery without angina pectoris; I10 Essential (primary) hypertension; E11.9 Type 2 diabetes mellitus without complications; E78.5 Hyperlipidemia, unspecified; G47.33 Obstructive sleep apnea (adult) (pediatric); Z88.1 Allergy status to other antibiotic agents; Z88.2 Allergy status to sulfonamides; Z79.82 Long term (current) use of aspirin; Z79.84 Long term (current) use of oral hypoglycemic drugs; Z79.899 Other long term (current) drug therapy
CPT/HCPCS: 36415; 70450; 80053; 82947; 84484; 85025; 93005; A9270-GY; J1650; J7512

== ENCOUNTER 2021-03-05 07:19 | Emergency (ER) | payer MEDICARE, BC ==
[2021-03-05] MEDS ORDERED: Sodium Chloride 0.9% 10 ML Syringe FLUSH PRN (07:53)
[2021-03-05] MEDS ORDERED: Lisinopril 10 MG Tab PO ONE (07:53)
[2021-03-05] MEDS ORDERED: Aspirin 81 MG Tab.Chew PO ONE (07:59)
[2021-03-05] MEDS ORDERED: metFORMIN 500 MG Tab PO ONE (07:59)
--- NOTE | 2021-03-05 08:03 | EDM.PDOC ---
ED HPI GENERAL MEDICAL PROBLEM - General Chief Complaint: Cardiovascular Problem Stated Complaint: low pluse rate Time Seen by Provider: 03/05/21 07:50 Source of Information: Reports: Patient, Family, Old Records, RN History Limitations: Reports: No Limitations - History of Present Illness INITIAL COMMENTS - FREE TEXT/NARRATIVE: 70 yo male was recently discharged from this hospital for bradycardia. He had his metoprolol discontinued during that admission and his HR increased to 60/min and he was discharged. He had a f/U with his primary yesterday and his HR was in the mid 40's and his BP in the upper 130's and no changes were made except that a Holter was ordered. Today at home he had a resting HR of 30/min and had some mild L upper/anterior chest pain that lasted about 5 min. He said he didn't feel right. He presents now with his and has not yet had any of his meds for today. Onset: Gradual Duration: Day(s):, Getting Worse Location: Reports: Chest Quality: Reports: Dull Severity: Mild Improves with: Reports: Other (unknown) Worsens with: Reports: Other (uncertain) Context: Reports: Other (See HPI) Associated Symptoms: Reports: Chest Pain (now gone). Denies: Shortness of Breath Treatments MILL WASHER: Reports: Other (see below) (none) - Related Data Allergies Allergy/AdvReac Type Severity Reaction Status Date / Time cephalexin Allergy Rash Verified 03/01/21 20:44 Sulfa (Sulfonamide Allergy Other Verified 03/01/21 20:44 Antibiotics) Home Meds: Home Meds Albuterol Sulfate [Proair Hfa] 1 - 2 puff IH Q4HR PRN 05/26/20 [History] Aspirin 325 mg PO DAILY 05/26/20 [History] Fenofibrate 160 mg PO DAILY 05/26/20 [History] Fish Oil/[place]-3 Fatty Acids [Fish Oil 1,000 MG] 1 each PO DAILY 05/26/20 [History] Loratadine [Claritin] 10 mg PO DAILY 05/26/20 [History] Nitroglycerin [Nitrostat] 0.4 mg SL ASDIRECTED 05/26/20 [History] Simvastatin [Zocor] 80 mg PO BEDTIME 05/26/20 [History] lisinopriL [Lisinopril] 10 mg PO DAILY 05/26/20 [History] metFORMIN [Glucophage] 500 mg PO BIDMEALS 05/26/20 [History] predniSONE [Prednisone] 5 mg PO DAILY 05/26/20 [History] Past Medical History Cardiovascular History: Reports: Angina, High Cholesterol, Hypertension, Stents Respiratory History: Reports: Sleep Apnea Other Respiratory History: uses cpap Musculoskeletal History: Reports: Fracture Endocrine/Metabolic History: Reports: Diabetes, Type II - Infectious Disease History Infectious Disease History: Reports: Measles, Novel Coronavirus - Past Surgical History Cardiovascular Surgical History: Reports: Coronary Artery Stent Social & Family History - Tobacco Use Tobacco Use Status *Q: Never Tobacco User - Caffeine Use Caffeine Use: Reports: Coffee - Recreational Drug Use Recreational Drug Use: No ED ROS GENERAL - Review of Systems Review Of Systems: See Below Constitutional: Reports: No Symptoms HEENT: Reports: No Symptoms Respiratory: Reports: No Symptoms Cardiovascular: Reports: Chest Pain GI/Abdominal: Reports: No Symptoms : Reports: No Symptoms Musculoskeletal: Reports: No Symptoms Skin: Reports: No Symptoms Neurological: Reports: No Symptoms Psychiatric: Reports: No Symptoms ED EXAM, GENERAL - Physical Exam Exam: See Below Exam Limited By: No Limitations General Appearance: Alert, WD/WN, No Apparent Distress, Obese Eye Exam: Bilateral Eye: Normal Inspection Ears: Normal External Exam, Normal Canal, Hearing Grossly Normal Ear Exam: Bilateral Ear: Auricle Normal, Canal Normal Nose: Normal Inspection, No Blood Throat/Mouth: Normal Inspection, Normal Lips, Normal Oropharynx, Normal Voice, No Airway Compromise Head: Atraumatic, Normocephalic Neck: Normal Inspection Respiratory/Chest: No Respiratory Distress, Lungs Clear, Normal Breath Sounds, No Accessory Muscle Use Cardiovascular: Regular Rate, Rhythm, No Edema, Bradycardia GI/Abdominal: Normal Bowel Sounds, Soft, Non-Tender, No Distention Extremities: Normal Inspection, Normal Range of Motion, Non-Tender, No Pedal Edema Neurological: Alert, Oriented, CN II-XII Intact, Normal Cognition, No Motor/Sensory Deficits Psychiatric: Normal Affect, Normal Mood Skin Exam: Warm, Intact, Normal Color, No Rash, Other (slightly sweaty) #1 Interpretation EKG Date: 03/05/21 Time: 07:30 Rhythm: NSR Rate (Beats/Min): 52 [place]: Normal P-Wave: Present QRS: RBBB ST-T: Normal QT: Normal Comparison: No Change Course - Vital Signs Text/Narrative:: Jo Ann Rios called @ 0850h, no beds now, expecting bed availability later today. Last Recorded V/S: Last Vital Signs Temp 35.8 C L 03/05/21 08:00 Pulse 43 L 03/05/21 13:34 Resp 18 03/05/21 13:34 BP 141/60 H 03/05/21 13:34 Pulse Ox 97 03/05/21 13:34 - Orders/Labs/Meds Orders: Active Orders 24 hr Category Date Time Status Cardiac Monitoring [RC] .As Directed Care 03/05/21 07:50 Active Chest 2V [CR] Stat Exams 03/05/21 12:51 Taken Sodium Chloride 0.9% [Normal Saline] 1,000 ml Med 03/05/21 10:15 Active IV ASDIRECTED Sodium Chloride 0.9% [Saline Flush] Med 03/05/21 07:53 Active 10 ml FLUSH ASDIRECTED PRN Saline Lock Insert [OM.PC] Routine Oth 03/05/21 07:53 Ordered EKG 12 Lead [EK] Routine Ther 03/05/21 07:50 Ordered Medication Orders Sodium Chloride (Normal Saline) 1,000 mls @ 75 mls/hr IV ASDIRECTED COLIN Last Admin: 03/05/21 10:09 Dose: 75 mls/hr Documented by: SAAD Sodium Chloride (Sodium Chloride 0.9% 10 Ml Syringe) 10 ml FLUSH ASDIRECTED PRN PRN Reason: Keep Vein Open Last Admin: 03/05/21 07:57 Dose: 10 ml Documented by: SAAD Labs: Laboratory Tests 03/05/21 03/05/21 03/05/21 Range/Units 08:15 11:06 13:34 Sodium 141 (140-148) mmol/L Potassium 4.5 (3.6-5.2) mmol/L Chloride 107 (100-108) mmol/L Carbon Dioxide 24 (21-32) mmol/L Anion Gap 10.5 (5.0-14.0) mmol/L BUN 24 H (7-18) mg/dL Creatinine 1.1 (0.8-1.3) mg/dL Est Cr Clr Drug Dosing 61.32 mL/min Estimated GFR (MDRD) > 60 (>60) Glucose 144 H (74-106) mg/dL Calcium 9.1 (8.5-10.1) mg/dL Troponin I < 0.017 < 0.017 (0.000-0.056) ng/mL SARS CoV-2 RNA Rapid LISSY Negative Meds: Medications Generic Name Dose Route Start Last Admin Trade Name Yoana PRN Reason Stop Dose Admin Sodium Chloride 1,000 mls @ 75 mls/hr 03/05/21 10:15 03/05/21 10:09 Normal Saline IV 75 mls/hr ASDIRECTED COLIN Administration Sodium Chloride 10 ml 03/05/21 07:53 03/05/21 07:57 Sodium Chloride 0.9% 10 Ml Syringe FLUSH 10 ml ASDIRECTED PRN Administration Keep Vein Open Discontinued Medications Generic Name Dose Route Start Last Admin Trade Name Yoana PRN Reason Stop Dose Admin Acetaminophen 1,000 mg 03/05/21 11:27 03/05/21 11:31 Acetaminophen 500 Mg Tab PO 03/05/21 11:28 1,000 mg ONETIME ONE Administration Aspirin 324 mg 03/05/21 07:59 03/05/21 08:07 Aspirin 81 Mg Tab.Chew PO 03/05/21 08:00 324 mg ONETIME ONE Administration Atropine Sulfate 0.5 mg 03/05/21 08:50 03/05/21 08:58 Atropine 0.1 Mg/Ml 10 Ml Syringe IVPUSH 03/05/21 08:51 0.5 mg ONETIME ONE Administration Lisinopril 20 mg 03/05/21 07:53 03/05/21 07:56 Lisinopril 10 Mg Tab PO 03/05/21 07:54 20 mg ONETIME ONE Administration Metformin HCl 500 mg 03/05/21 07:59 03/05/21 08:08 Metformin 500 Mg Tab PO 03/05/21 08:00 500 mg ONETIME ONE Administration Nitroglycerin 1 gm 03/05/21 08:08 03/05/21 08:13 Nitroglycerin 2% Oint 1 Gm Ud Packet TOP 03/05/21 08:09 1 gm ONETIME ONE Administration - Radiology Interpretation Free Text/Narrative:: CXR-neg Departure - Departure Time of Disposition: 13:58 Disposition: DC/Tfer to Acute Hospital 02 Reason for Transfer *Q: Other Condition: Fair Clinical Impression: Bradycardia Referrals: Donovan Kramer MD [Primary Care Provider] - Forms: ED Department Discharge Sepsis Event Note (ED) - Evaluation Sepsis Screening Result: No Definite Risk - Focused Exam Vital Signs: Vital Signs Temp Pulse Resp BP BP Pulse Ox 03/05/21 13:34 43 L 18 141/60 H 97 03/05/21 12:06 43 L 20 132/64 95 03/05/21 11:36 43 L 17 138/62 94 L 03/05/21 11:06 46 L 20 142/68 H 95 03/05/21 10:36 43 L 19 144/65 H 96 03/05/21 10:07 51 L 17 149/71 H 96 03/05/21 09:36 57 L 18 165/72 H 97 03/05/21 09:06 79 14 172/74 H 96 03/05/21 08:37 39 L 18 168/67 H 98 03/05/21 08:07 38 L 19 176/67 H 98 03/05/21 08:00 35.8 C L 56 L 13 183/108 H 98 03/05/21 07:56 183/108 H 03/05/21 07:44 36.3 C 43 L 14 183/108 H 98 - My Orders Last 24 Hours: My Active Orders 03/05/21 07:50 Cardiac Monitoring [RC] .As Directed EKG 12 Lead [EK] Routine 03/05/21 07:53 Sodium Chloride 0.9% [Saline Flush] 10 ml FLUSH ASDIRECTED PRN Saline Lock Insert [OM.PC] Routine 03/05/21 10:15 Sodium Chloride 0.9% [Normal Saline] 1,000 ml IV ASDIRECTED 03/05/21 12:51 Chest 2V [CR] Stat - Assessment/Plan Last 24 Hours: My Active Orders 03/05/21 07:50 Cardiac Monitoring [RC] .As Directed EKG 12 Lead [EK] Routine 03/05/21 07:53 Sodium Chloride 0.9% [Saline Flush] 10 ml FLUSH ASDIRECTED PRN Saline Lock Insert [OM.PC] Routine 03/05/21 10:15 Sodium Chloride 0.9% [Normal Saline] 1,000 ml IV ASDIRECTED 03/05/21 12:51 Chest 2V [CR] Stat
[2021-03-05] MEDS ORDERED: Nitroglycerin 2% Oint 1 GM UD Packet TOP ONE (08:08)
[2021-03-05] MEDS ORDERED: Atropine 0.1 MG/ML 10 ML Syringe IVPUSH ONE (08:50)
[2021-03-05] MEDS ORDERED: Sodium Chloride 0.9% 1,000 ML IV SCH (10:15)
[2021-03-05] MEDS ORDERED: Acetaminophen 500 MG Tab PO ONE (11:27)
--- NOTE | 2021-03-07 09:38 | CR ---
CHEST: 2 view CLINICAL HISTORY:Bradycardia COMPARISON:2006 FINDINGS: The heart size, pulmonary vascularity and hilar structures are normal. No infiltrate effusion or pneumothorax is seen. IMPRESSION: No acute cardiopulmonary process.
== END 2021-03-05 15:43 ==
LOC: JP.ED 07:19
DX: R00.1 Bradycardia, unspecified (principal); I45.10 Unspecified right bundle-branch block; E78.00 Pure hypercholesterolemia, unspecified; I10 Essential (primary) hypertension; E11.9 Type 2 diabetes mellitus without complications; Z88.1 Allergy status to other antibiotic agents; Z88.2 Allergy status to sulfonamides; Z79.82 Long term (current) use of aspirin; Z79.84 Long term (current) use of oral hypoglycemic drugs; Z79.899 Other long term (current) drug therapy; Z20.822 Contact with and (suspected) exposure to COVID-19
CPT/HCPCS: 36415; 71046; 80048; 84484; 93005; 96374; 99285; A9270; J0461; J7030; U0002

== ENCOUNTER 2024-03-10 11:14 | Emergency (ER) | payer MEDICARE, BC ==
[2024-03-10] MEDS ORDERED: Sodium Chloride 0.9% 10 ML Syringe FLUSH PRN (12:14)
[2024-03-10] MEDS: Acetaminophen 325 MG Tab PO STA (12:29)
[2024-03-10] MEDS: Sodium Chloride 0.9% 1,000 ML IV SCH (12:30)
[2024-03-10 12:46] LABS: A/G RATIO 1.2 (1.2-2.2); ALANINE AMINOTRANSFERASE,ALT 41 U/L (12-78); ALBUMIN 3.7 g/dL (3.4-5.0); ALKALINE PHOSPHATASE 27 U/L (46-116); ASPARTATE AMNIOTRANSFERASE,AST 21 U/L (15-37); BILIRUBIN TOTAL 0.9 mg/dL (0.2-1.0); BLOOD UREA NITROGEN,BUN 26 mg/dL (7-18); CALCIUM 9.7 mg/dL (8.5-10.1); CARBON DIOXIDE,CO2 23 mmol/L (21-32); CHLORIDE,CL 103 mmol/L (100-108); CREATININE 1.5 mg/dL (0.8-1.3); EST CRCL DRUG DOSING (CG) 43.07 mL/min; ESTIMATED GFR 49 mL/min (>60); GLUCOSE RANDOM 217 mg/dL (74-106); POTASSIUM,K 4.3 mmol/L (3.6-5.2); PROTEIN TOTAL,TP 6.8 g/dL (6.4-8.2); SODIUM,NA 137 mmol/L (140-148)
[2024-03-10 12:48] LABS: ANION GAP 15.3 mmol/L (5.0-14.0)
== END 2024-03-10 14:37 | disposition home or self-care (01) ==
LOC: JP.ED 11:14
DX: U07.1 COVID-19 (principal); E11.9 Type 2 diabetes mellitus without complications; Z79.899 Other long term (current) drug therapy; Z79.84 Long term (current) use of oral hypoglycemic drugs; Z79.82 Long term (current) use of aspirin; Z88.2 Allergy status to sulfonamides; Z88.1 Allergy status to other antibiotic agents
CPT/HCPCS: 36415; 80053; 96360; 96361; 99283; A9270; J7030; U0002